=== PATIENT | male | born 2000 | race Caucasian/White ===

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

== ENCOUNTER 2020-05-07 13:09 | Emergency (ER) | payer OTHER, SELFPAY ==
[~2020-05-07] VITALS: Ht 175.3 cm; Wt 145.1 kg
[2020-05-07 13:26] VITALS: BP 129/71
--- NOTE | 2020-05-07 13:28 | NUR ---
Patient in tent for covid precautions
--- NOTE | 2020-05-07 13:32 | NUR ---
20 y/o male c/o sob and myalgia x 7 days. Pt states possible covid contact but unknown. rr even and unlabored. Does not appear to be in distress. Denies n/v/d. 2/10 aching pain to generalized body. VSS medhx: denies
--- NOTE | 2020-05-07 14:02 | NUR ---
VIVEK KENNEDY collected walked to lab.
--- NOTE | 2020-05-07 14:34 | NUR ---
Patient discharged with v/s stable. Written and verbal after care instructions given and explained. Patient alert, oriented and verbalized understanding of instructions. Ambulatory with steady gait. All questions addressed prior to discharge. ID band removed. Patient advised to follow up with PMD. Rx of Azithromycin, Acetaminophen 500mg, Guaiatussin 100mg, albuterol 90mcg given. Patient educated on indication of medication including possible reaction and side effects. Opportunity to ask questions provided and answered.
[2020-05-07 14:36] VITALS: BP 129/71
--- NOTE | 2020-05-08 18:12 | NUR ---
+ covid result from lab-- copy to go to infection prevention
== END 2020-05-07 14:34 | disposition home or self-care (01) ==
LOC: MED 13:09
DX: B34.9 Viral infection, unspecified (principal); Z20.828 Contact with and (suspected) exposure to other viral communicable diseases; J18.9 Pneumonia, unspecified organism
CPT/HCPCS: 71045; 99284; U0003